=== PATIENT | male | born 1995 | race Caucasian/White ===

== ENCOUNTER 2017-03-28 06:59 | Emergency (ER) | payer OTHER ==
[~2017-03-28] VITALS: Ht 175.3 cm; Wt 117.9 kg
[2017-03-28 07:00] VITALS: BP 175/89
[2017-03-28] MEDS ORDERED: IBUP-1022 PO (07:27)
[2017-03-28] MEDS ORDERED: CYCL10TA PO (07:27)
[2017-03-28] MEDS ORDERED: CYCLOBENZAPRINE 10 MG TAB PO ONE (07:30)
[2017-03-28] MEDS ORDERED: IBUPROFEN 600 MG TAB PO ONE (07:30)
== END 2017-03-28 07:30 | disposition home or self-care (01) ==
LOC: M ED 06:59
DX: M62.830 Muscle spasm of back (principal); X50.0XXA Overexertion from strenuous movement or load, initial encounter; Y92.89 Other specified places as the place of occurrence of the external cause; Y93.89 Activity, other specified; Y99.0 Civilian activity done for income or pay

== ENCOUNTER 2019-02-14 19:42 | Emergency (ER) | payer OTHER, BC ==
[~2019-02-14] VITALS: Ht 177.8 cm; Wt 122.7 kg
[~2019-02-14 19:42] MED LIST: CYCL10TA PO; IBUP-1022 PO
[2019-02-14] MEDS ORDERED: IBUPROFEN 600 MG TAB PO ONE (21:15)
[2019-02-14 21:18] VITALS: BP 131/75
--- NOTE | 2019-02-15 01:37 | REP ---
Clinical: Right ankle pain . Technique: AP, lateral, bilateral oblique views. Findings: No acute fracture or dislocation. Skeletal structures and joint spaces are intact and normal. Ankle mortise appears stable. No subcutaneous emphysema or radiodense foreign body. Impression: Normal right ankle radiograph series. Electronically Signed by Jan Stoll MD 02/15/2019 01:28 A
--- NOTE | 2019-02-15 01:38 | REP ---
Clinical: Right knee pain Technique: AP, lateral, bilateral oblique and sunrise views. Findings: The osseous structures and joint spaces are intact and normal. There is no evidence for acute fracture or dislocation. No joint effusion is appreciated. Surrounding soft tissues are unremarkable. No subcutaneous emphysema or radiodense foreign body. Impression: Normal examination. No acute fracture or dislocation. Electronically Signed by Jan Stoll MD 02/15/2019 01:29 A
== END 2019-02-14 21:19 | disposition home or self-care (01) ==
LOC: M ED 19:42
DX: S83.411A Sprain of medial collateral ligament of right knee, initial encounter (principal); S93.411A Sprain of calcaneofibular ligament of right ankle, initial encounter; W00.9XXA Unspecified fall due to ice and snow, initial encounter; Y92.481 Parking lot as the place of occurrence of the external cause; Y93.9 Activity, unspecified; Y99.9 Unspecified external cause status

== ENCOUNTER 2019-07-15 20:58 | Emergency (ER) | payer BC, OTHER ==
[~2019-07-15] VITALS: Ht 175.3 cm; Wt 122.7 kg
[2019-07-15 20:58] VITALS: BP 148/78
[~2019-07-15 20:58] MED LIST changes: +CYCL-707 PO; -CYCL10TA PO
[2019-07-15] MEDS ORDERED: CYCL5TAB (21:04)
[2019-07-15] MEDS ORDERED: IBUP80TA (21:04)
[2019-07-15] MEDS ORDERED: KETOROLAC 60 MG/2 ML VIAL (J1885) IM ONE (21:30)
[2019-07-15] MEDS ORDERED: ACETAMINOPHEN 325 MG TAB PO ONE (21:30)
[2019-07-15] MEDS ORDERED: KETO10TAB PO (22:28)
[2019-07-15] MEDS ORDERED: KETOROLAC TROMETHAMINE 10 MG TAB PO ONE (22:30)
--- NOTE | 2019-07-16 08:59 | REP ---
REASON: Pain. AP and lateral views were obtained. There is no abnormality. Vertebral body height and alignment is within normal limits. The disc spaces are symmetric and well maintained. The pedicles are intact bilaterally. IMPRESSION: No abnormality. Electronically Signed by Mark Luna DO 07/16/2019 09:13 A
--- NOTE | 2019-07-16 09:01 | REP ---
THORACIC SPINE: REASON: Pain. COMPARISON: No priors. FINDINGS: Three views of the thoracic spine were obtained. The disc spaces are symmetric and relatively well maintained. There is no acute fracture or destructive osseous lesion. Electronically Signed by Mark Luna DO 07/16/2019 09:13 A
== END 2019-07-15 22:41 | disposition home or self-care (01) ==
LOC: M ED 20:58
DX: S39.012A Strain of muscle, fascia and tendon of lower back, initial encounter (principal); X50.0XXA Overexertion from strenuous movement or load, initial encounter; Y92.89 Other specified places as the place of occurrence of the external cause; Y93.89 Activity, other specified; Y99.0 Civilian activity done for income or pay; Z79.899 Other long term (current) drug therapy
CPT/HCPCS: 72070; 72100; 96372; 99283; J1885

== ENCOUNTER → 2020-02-26 | Outpatient (CLI) | payer SELFPAY ==
[~2020-02-26] MED LIST changes: +CYCL5TAB; +IBUP80TA; +KETO10TAB PO
== END ==
LOC: M LABSMTC 12:08
PROVIDERS: ATTEND Pediatrics
DX: Z20.828 Contact with and (suspected) exposure to other viral communicable diseases (principal)

== ENCOUNTER → 2020-04-11 | Outpatient (REF) | payer BC | LOC: M LAB REF 16:14 | PROVIDERS: ATTEND Physician Assistant | DX: J02.0 Streptococcal pharyngitis (principal) ==

== ENCOUNTER 2020-05-27 21:47 | Emergency (ER) | payer BC ==
[~2020-05-27] VITALS: Ht 177.8 cm; Wt 125.8 kg
--- OUTSIDE RECORDS SUMMARY | 2020-05-27 21:53 | CCD ---
Author Author [facility] Organization [facility] Address Unknown Phone Unavailable Care Team Providers Care Warehouse Operations Associate Name Role Phone Lopez, Karon CELL PLASTERER Unavailable Unavailable Lopez, Karon CELL PLASTERER Unavailable Unavailable Lopez, Karon CELL PLASTERER Unavailable Unavailable Lopez, Karon CELL PLASTERER Unavailable Unavailable Lopez, Karon CELL PLASTERER Unavailable Unavailable Lopez, Karon CELL PLASTERER Unavailable Unavailable Lopez, Karon CELL PLASTERER Unavailable Unavailable Lopez, Karon CELL PLASTERER Unavailable Unavailable Lopez, Karon CELL PLASTERER Unavailable Unavailable Lopez, Karon CELL PLASTERER Unavailable Unavailable Lopez, Karon CELL PLASTERER Unavailable Unavailable Re-disclosure Warning The records that you are about to access may contain information from federally-assisted alcohol or drug abuse programs. If such information is present, then the following federally mandated warning applies: This information has been disclosed to you from records protected by federal confidentiality rules (42 CFR part 2). The federal rules prohibit you from making any further disclosure of this information unless further disclosure is expressly permitted by the written consent of the person to whom it pertains or as otherwise permitted by 42 CFR part 2. A general authorization for the release of medical or other information is NOT sufficient for this purpose. The Federal rules restrict any use of the information to criminally investigate or prosecute any alcohol or drug abuse patient.The records that you are about to access may contain highly sensitive health information, the redisclosure of which is protected by Article 27-F of the [facility] Public Health law. If you continue you may have access to information: Regarding HIV / AIDS; Provided by facilities licensed or operated by the [facility] Office of Mental Health; or Provided by the [facility] Office for People With Developmental Disabilities. If such information is present, then the following [facility] mandated warning applies: This information has been disclosed to you from confidential records which are protected by state law. State law prohibits you from making any further disclosure of this information without the specific written consent of the person to whom it pertains, or as otherwise permitted by law. Any unauthorized further disclosure in violation of state law may result in a fine or long term sentence or both. A general authorization for the release of medical or other information is NOT sufficient authorization for further disc losure. Family History Family Member Name Family Member Gender Family Member Status Date o f Status Description Data Source(s) Unknown Unknown Problem [facility] ([facility], [facility]) mgm Encounters Encounter Providers Location Date Indications Data Source(s ) Outpatient 07/26/2019 05:32:00 AM EDT [facility] Outpatient Attender: Karon lebron 07/10/2019 10:45:00 AM EDT [facility] ([facility], [facility]) Medications Medication Brand Name Start Date Product Form Dose Route Admi nistrative Instructions Pharmacy Instructions Status Indications Reaction Description Data Source(s) Ibuprofen 800 MG Oral Tablet Ibuprofen 07/10/2019 12:00:00 AM EDT ORAL active [facility] ([facility], [facility]) Cyclobenzaprine hydrochloride 5 MG Oral Tablet Cyclobenzapri ne HCL 07/10/2019 12:00:00 AM EDT ORAL active M [facility]ENT ([facility], [facility]) Prednisone 20 MG Oral Tablet Prednisone 07/10/2019 12:00:00 AM EDT active [facility] ([facility], [facility]) No Active Medications 03/09/2019 12:00:00 AM EST completed [facility] ([facility], [facility]) Insurance Providers Payer name Policy type / Coverage type Policy ID Covered libertarian ID Covered libertarian's relationship to nichols Policy Nichols Plan Information [employer] [place] 306/806 [id number] SP [id number] SELF PAY ONLY [id number] SP [id number] EXCELLUS BCBS B [id number] S VYS [id number] PMA MANAGEMENT [facility] [id number] SP [id number] PMA MANAGEMENT [facility] O [id number] O [id number] [employer] [place] 306/806 [id number] SP [id number] PMA MANAGEMENT [facility] [id number] SP [id number] BCBS/Blue Card Commercial [id number] Self V [id number] BCBS/Blue Card Commercial [id number] Self V [id number] [facility] O UNAVAILABLE S UNAVAILABLE PHYSICIANS M[employer]UAL [id number] SP [id number] [facility] COMMUNITY PLAN [facility] [id number] SP [id number] [facility] Health Maintenance Organization (HMO) Self BCBS [place] PPO 302/307 [id number] MO2 [id number] Surgeries/Procedures Procedure Description Date Indications Data Source(s) Therapeutic, Prophylactic Or Diagnostic Injection Subq/Im 07/10/2019 12:00:00 AM EDT [facility] ([facility]) Results ID Date Data Source [id number] 05/23/2020 12:00:00 AM EST [facility] Name Value Range Interpretation Code Description Data Nicolasa rce(s) Supporting Document(s) SARS coronavirus 2 Ag NEGATIVE [facility] This lab was ordered by [facility] and reported by [facility]. ID Date Data Source [id number] 05/20/2020 12:00:00 AM EST [facility] Name Value Range Interpretation Code Description Data Nicolasa rce(s) Supporting Document(s) SARS-CoV2 Rapid Antigen Negative [facility] This lab was ordered by [facility] and reported by [facility]. ID Date Data Source [id number] 05/16/2020 12:00:00 AM EST [facility] Name Value Range Interpretation Code Description Data Nicolasa rce(s) Supporting Document(s) SARS coronavirus 2 Ag NEGATIVE [facility] This lab was ordered by [facility] and reported by [facility]. ID Date Data Source [id number] 05/13/2020 12:00:00 AM EST [facility] Name Value Range Interpretation Code Description Data Nicolasa rce(s) Supporting Document(s) SARS-CoV2 Rapid Antigen Negative [facility] This lab was ordered by [facility] and reported by [facility]. ID Date Data Source [id number] 05/06/2020 12:00:00 AM EST [facility] Name Value Range Interpretation Code Description Data Nicolasa rce(s) Supporting Document(s) SARS-CoV2 Rapid Antigen Negative [facility] This lab was ordered by [facility] [place] and reported by [facility]. ID Date Data Source [id number] 05/02/2020 12:00:00 AM EST [facility] Name Value Range Interpretation Code Description Data Nicolasa rce(s) Supporting Document(s) SARS coronavirus 2 Ag NEGATIVE [facility] and reported by [facility]. ID Date Data Source [id number] 04/29/2020 12:00:00 AM EST [facility] Name Value Range Interpretation Code Description Data Nicolasa rce(s) Supporting Document(s) SARS-CoV2 Rapid Antigen Negative [facility] This lab was ordered by [facility] and reported by [facility]. ID Date Data Source [id number] 04/25/2020 12:00:00 AM EST [facility] Name Value Range Interpretation Code Description Data Nicolasa rce(s) Supporting Document(s) SARS coronavirus 2 Ag Negative [facility] This lab was ordered by [facility] and reported by [facility]. ID Date Data Source [id number] 04/22/2020 12:00:00 AM EST [facility] Name Value Range Interpretation Code Description Data Nicolasa rce(s) Supporting Document(s) SARS-CoV2 Rapid Antigen Negative [facility] This lab was ordered by [facility] and reported by [facility]. ID Date Data Source [id number] 04/18/2020 12:00:00 AM EST [facility] Name Value Range Interpretation Code Description Data Nicolasa rce(s) Supporting Document(s) SARS-CoV2 Rapid Antigen Negative [facility] This lab was ordered by [facility] and reported by [facility]. ID Date Data Source [id number] 04/09/2020 12:00:00 AM EST [facility] Name Value Range Interpretation Code Description Data Nicolasa rce(s) Supporting Document(s) SARS-CoV2 Rapid Antigen Negative [facility] This lab was ordered by [facility] and reported by [facility]. ID Date Data Source [id number] 04/01/2020 12:00:00 AM EST [facility] Name Value Range Interpretation Code Description Data Nicolasa rce(s) Supporting Document(s) SARS-CoV2 Rapid Antigen [facility] This lab was ordered by [facility] and reported by [facility]. ID Date Data Source [id number] 03/25/2020 12:00:00 AM EST [facility] Name Value Range Interpretation Code Description Data Nicolasa rce(s) Supporting Document(s) SARS-CoV2 Rapid Antigen [facility] This lab was ordered by [facility] and reported by [facility]. ID Date Data Source [id number] 03/22/2020 12:00:00 AM EST [facility] Name Value Range Interpretation Code Description Data Nicolasa rce(s) Supporting Document(s) SARS-CoV2 Rapid Antigen [facility] This lab was ordered by [facility] and reported by [facility]. ID Date Data Source [id number] 03/21/2020 01:49:00 PM EST [facility] Name Value Range Interpretation Code Description Data Nicolasa rce(s) Supporting Document(s) SARS coronavirus 2 RNA [facility] This lab was ordered by [facility] and reported by [facility]. ID Date Data Source [id number] 03/19/2020 12:00:00 AM EST [facility] Name Value Range Interpretation Code Description Data Nicolasa rce(s) Supporting Document(s) SARS-CoV2 Rapid Antigen [facility] This lab was ordered by [facility] and reported by [facility]. ID Date Data Source [id number] 03/04/2020 01:00:00 PM EST [facility] Name Value Range Interpretation Code Description Data Nicolasa rce(s) Supporting Document(s) SARS coronavirus 2 RNA [facility] This lab was ordered by [facility] and reported by [facility]. ID Date Data Source [id number] 02/28/2020 12:00:00 AM EST [facility] Name Value Range Interpretation Code Description Data Nicolasa rce(s) Supporting Document(s) SARS-CoV2 Rapid Antigen [facility] This lab was ordered by [facility] and reported by [facility]. ID Date Data Source [id number] 02/26/2020 12:00:00 AM EST [facility] Name Value Range Interpretation Code Description Data Nicolasa rce(s) Supporting Document(s) 2019-nCoV RNA XXX BRIDGER+probe-Imp [facility] This lab was ordered by [facility] and reported by [employer] ID Date Data Source [id number] 02/19/2020 10:51:00 AM EST [facility] Name Value Range Interpretation Code Description Data Nicolasa rce(s) Supporting Document(s) SARS coronavirus 2 RNA [facility] This lab was ordered by [facility] and reported by [facility]. ID Date Data Source [id number] 02/15/2020 11:14:00 AM EST [facility] Name Value Range Interpretation Code Description Data Nicolasa rce(s) Supporting Document(s) SARS coronavirus 2 RNA [facility] This lab was ordered by [facility] and reported by [facility]. ID Date Data Source [id number] 02/08/2020 03:38:00 AM EST [facility] Name Value Range Interpretation Code Description Data Nicolasa rce(s) Supporting Document(s) SARS coronavirus 2 RNA [facility] This lab was ordered by [facility] and reported by [facility]. ID Date Data Source [id number] 01/29/2020 09:00:00 AM EDT [facility] Name Value Range Interpretation Code Description Data Nicolasa rce(s) Supporting Document(s) SARS coronavirus 2 RNA [facility] This lab was ordered by [facility] and reported by [facility]. ID Date Data Source [id number] 01/22/2020 01:00:00 PM EDT [facility] Name Value Range Interpretation Code Description Data Nicolasa rce(s) Supporting Document(s) SARS coronavirus 2 RNA [facility] This lab was ordered by [facility] and reported by [facility]. ID Date Data Source [id number] 01/15/2020 11:30:00 AM EDT [facility] Name Value Range Interpretation Code Description Data Nicolasa rce(s) Supporting Document(s) SARS coronavirus 2 RNA [facility] This lab was ordered by [facility] and reported by [facility]. ID Date Data Source [id number] 01/08/2020 12:00:00 PM EDT [facility] Name Value Range Interpretation Code Description Data Nicolasa rce(s) Supporting Document(s) SARS coronavirus 2 RNA [facility] This lab was ordered by [facility] and reported by [facility]. ID Date Data Source [id number] 01/04/2020 01:50:00 PM EDT [facility] Name Value Range Interpretation Code Description Data Nicolasa rce(s) Supporting Document(s) SARS coronavirus 2 RNA [facility] This lab was ordered by [facility] and reported by [facility]. ID Date Data Source [id number] 12/25/2019 12:00:00 PM EDT [facility] Name Value Range Interpretation Code Description Data Nicolasa rce(s) Supporting Document(s) SARS coronavirus 2 RNA [facility] This lab was ordered by [facility] and reported by [facility]. ID Date Data Source [id number] 12/18/2019 02:00:00 PM EDT [facility] Name Value Range Interpretation Code Description Data Nicolasa rce(s) Supporting Document(s) SARS coronavirus 2 RNA [facility] This lab was ordered by [facility] and reported by [facility]. ID Date Data Source [id number] 12/13/2019 12:00:00 PM EDT [facility] Name Value Range Interpretation Code Description Data Nicolasa rce(s) Supporting Document(s) SARS coronavirus 2 RNA [facility] This lab was ordered by [facility] and reported by [facility]. ID Date Data Source [id number] 12/07/2019 11:00:00 AM EDT [facility] Name Value Range Interpretation Code Description Data Nicolasa rce(s) Supporting Document(s) SARS coronavirus 2 RNA [facility] This lab was ordered by [facility] and reported by [facility]. ID Date Data Source [id number] 11/27/2019 01:16:00 PM EDT [facility] Name Value Range Interpretation Code Description Data Nicolasa rce(s) Supporting Document(s) SARS coronavirus 2 RNA [facility] This lab was ordered by [facility] and reported by [facility]. ID Date Data Source [id number] 10/16/2019 03:13:00 PM EDT [facility] Name Value Range Interpretation Code Description Data Nicolasa rce(s) Supporting Document(s) SARS coronavirus 2 RNA [facility] This lab was ordered by [facility] and reported by [facility]. ID Date Data Source [id number] 08/23/2019 02:24:00 PM EDT [facility] Name Value Range Interpretation Code Description Data Nicolasa rce(s) Supporting Document(s) SARS CORONAVIRUS 2 RNA [facility] This lab was ordered by [facility] and reported by [facility]. ID Date Data Source [id number] 08/15/2019 02:06:00 PM EDT [facility] Name Value Range Interpretation Code Description Data Nicolasa rce(s) Supporting Document(s) SARS CORONAVIRUS 2 RNA [facility] This lab was ordered by [facility] and reported by [facility]. Procedure Vital Signs ID Date Data Source UNK Name Value Range Interpretation Code Description Data Source(s) Body mass index (BMI) [Ratio] 39.9 kg/m2 39.9 k g/m2 [facility] ([facility]) Body height 69 [in_i] 69 [in_i] [facility] ([facility]) 5'9" Body weight 270.00 [lb_av] 270.00 [lb_av] [facility] ([facility]) Body temperature 98.8 [degF] 98.8 [degF] [facility] ([facility]) Oxygen saturation in Arterial blood by Pulse oximetry 97 % 97 % [facility] ([facility]) Respiratory rate 12 /min 12 /min [facility] ( [facility], [facility]) Heart rate 96 /min 96 /min [facility] ([facility], [facility]) Diastolic blood pressure 97 mm[Hg] 97 mm[Hg] [facility] ([facility], [facility]) Systolic blood pressure 128 mm[Hg] 128 mm[Hg] [facility])
--- NOTE | 2020-05-27 23:26 | REPVR ---
PROCEDURE INFORMATION: Exam: XR Right Foot Exam date and time: 05/27/20 (10:33pm) Age: 25 years old Clinical indication: Right foot pain. Injury. TECHNIQUE: Imaging protocol: XR Right foot Views: 3 or more views COMPARISON: Right ankle plain films of 02/14/19 FINDINGS: Bones/joints: Unremarkable. No acute fracture nor dislocation. Soft tissues: Unremarkable. IMPRESSION: No acute findings. Electronically signed by: Angelica Goodman On 05/27/2020 23:27:13 PM
--- OUTSIDE RECORDS SUMMARY | 2020-05-28 00:27 | CCD ---
Author Author [facility] Organization [facility] Address Unknown Phone Unavailable Care Team Providers Care Wirer Name Role Phone Lopez, Karon COACH Unavailable Unavailable Lopez, Karon COACH Unavailable Unavailable Lopez, Karon COACH Unavailable Unavailable Lopez, Karon COACH Unavailable Unavailable Lopez, Karon COACH Unavailable Unavailable Lopez, Karon COACH Unavailable Unavailable Lopez, Karon COACH Unavailable Unavailable Lopez, Karon COACH Unavailable Unavailable Lopez, Karon COACH Unavailable Unavailable Lopez, Karon COACH Unavailable Unavailable Lopez, Karon COACH Unavailable Unavailable Re-disclosure Warning The records that [...] is protected by Article 27-F of the [facility] Public Health law. If you continue you may have access to information: Regarding HIV / AIDS; Provided by facilities licensed or operated by the [facility] Office of Mental Health; or Provided by the [facility] Office for People With Developmental Disabilities. If such information is present, then the following [facility] mandated warning applies: This information has been [...] law may result in a fine or mcc sentence or both. A general authorization for the release of medical or other information is NOT sufficient authorization for further disc losure. Family History Family Member Name Family Member Gender Family Member Status Date o f Status Description Data Source(s) Unknown Unknown Problem [facility] ([facility]) mgm Encounters Encounter Providers Location Date Indications Data Source(s ) Outpatient 07/26/2019 05:32:00 AM EDT [facility] Outpatient Attender: Karon lebron 07/10/2019 10:45:00 AM EDT [facility] ([facility]) Medications Medication Brand Name Start Date Product Form Dose Route Admi nistrative Instructions Pharmacy Instructions Status Indications Reaction Description Data Source(s) Ibuprofen 800 MG Oral Tablet Ibuprofen 07/10/2019 12:00:00 AM EDT ORAL active [facility] ([facility]) Cyclobenzaprine hydrochloride 5 MG Oral Tablet Cyclobenzapri ne HCL 07/10/2019 12:00:00 AM EDT ORAL active M [facility]ENT ([facility]) Prednisone 20 MG Oral Tablet Prednisone 07/10/2019 12:00:00 AM EDT active [facility] ([facility] [place], [facility]) No Active Medications 03/09/2019 12:00:00 AM EST completed [facility] ([facility] Insurance Providers Payer name Policy type / Coverage type Policy ID Covered democrat ID Covered democrat's relationship to nichols Policy Nichols Plan Information [employer] [place] 306/806 [id number] SP [id number] SELF PAY ONLY [id number] SP [id number] EXCELLUS BCBS B [id number] S VYS [id number] PMA MANAGEMENT [facility] [id number] SP [id number] PMA MANAGEMENT [facility] O [id number] O [id number] [employer] [place] 306/806 [id number] SP [id number] PMA MANAGEMENT [facility] [id number] SP [id number] BCBS/Blue Card Commercial [id number] Self V [id number] BCBS/Blue Card Commercial [id number] Self V [id number] [facility] O UNAVAILABLE S UNAVAILABLE PHYSICIANS MUTUAL [id number] SP [id number] [facility] [id number] SP [id number] [facility] Health Maintenance Organization (HMO) Self BCBS [place] PPO 302/307 [id number] MO2 [id number] Surgeries/Procedures Procedure Description Date Indications Data Source(s) Therapeutic, Prophylactic Or Diagnostic Injection Subq/Im 07/10/2019 12:00:00 AM EDT [facility] ([facility]) Results ID Date Data Source [id number] 05/23/2020 12:00:00 AM EST [facility] Name Value Range Interpretation Code Description Data Nicolasa rce(s) Supporting Document(s) SARS coronavirus 2 Ag NEGATIVE [facility] This lab was ordered by JANEL FREITAS and reported by [facility]. ID Date Data Source [id number] 05/20/2020 12:00:00 AM EST [facility] Name Value Range Interpretation Code Description Data Nicolasa rce(s) Supporting Document(s) SARS-CoV2 Rapid Antigen Negative [facility] This lab was ordered by Janel mauricio [place] and reported by [facility] Kevin [place]. ID Date Data Source [id number] 05/16/2020 12:00:00 AM EST [facility] Name Value Range Interpretation Code Description Data Nicolasa rce(s) Supporting Document(s) SARS coronavirus 2 Ag NEGATIVE [facility] This lab was ordered by [facility] and reported by [facility]. ID Date Data Source [id number] 05/13/2020 12:00:00 AM EST [facility] Name Value Range Interpretation Code Description Data Nicolasa rce(s) Supporting Document(s) SARS-CoV2 Rapid Antigen Negative [facility] This lab was ordered by [facility] and reported by [facility]. ID Date Data Source [id number] 05/06/2020 12:00:00 AM EST [facility] Name Value Range Interpretation Code Description Data Nicolasa rce(s) Supporting Document(s) SARS-CoV2 Rapid Antigen Negative [facility] This lab was ordered by [facility] and reported by [facility]. ID Date Data Source [id number] 05/02/2020 12:00:00 AM EST [facility] Name Value Range Interpretation Code Description Data Nicolasa rce(s) Supporting Document(s) SARS coronavirus 2 Ag NEGATIVE [facility] This lab was ordered by [facility] and reported by [facility]. ID Date Data Source [id number] 04/29/2020 12:00:00 AM EST [facility] Name Value Range Interpretation Code Description Data Nicolasa rce(s) Supporting Document(s) SARS-CoV2 Rapid Antigen Negative [facility] This lab was ordered by [facility] and reported by [facility]. ID Date Data Source [id number] 04/25/2020 12:00:00 AM EST [facility] Name Value Range Interpretation Code Description Data Nicolasa rce(s) Supporting Document(s) SARS coronavirus 2 Ag Negative [facility] This lab was ordered by [facility] and reported by [facility]. ID Date Data Source [id number] 04/22/2020 12:00:00 AM EST [facility] Name Value Range Interpretation Code Description Data Nicolasa rce(s) Supporting Document(s) SARS-CoV2 Rapid Antigen Negative [facility] This lab was ordered by [facility] and reported by [facility]. ID Date Data Source [id number] 04/18/2020 12:00:00 AM EST [facility] Name Value Range Interpretation Code Description Data Nicolsaa rce(s) Supporting Document(s) SARS-CoV2 Rapid Antigen Negative [facility] This lab was ordered by [facility] and reported by [facility]. ID Date Data Source [id number] 04/09/2020 12:00:00 AM EST [facility] Name Value Range Interpretation Code Description Data Nicolasa rce(s) Supporting Document(s) SARS-CoV2 Rapid Antigen Negative [facility] This lab was ordered by [facility] and reported by [facility]. ID Date Data Source [id number] 04/01/2020 12:00:00 AM EST [facility] Name Value Range Interpretation Code Description Data Nicolasa rce(s) Supporting Document(s) SARS-CoV2 Rapid Antigen [facility] This lab was ordered by [facility] and reported by [facility]. ID Date Data Source [id number] 03/25/2020 12:00:00 AM EST [facility] Name Value Range Interpretation Code Description Data Nicolasa rce(s) Supporting Document(s) SARS-CoV2 Rapid Antigen [facility] This lab was ordered by [facility] and reported by [facility]. ID Date Data Source [id number] 03/22/2020 12:00:00 AM EST [facility] Name Value Range Interpretation Code Description Data Nicolasa rce(s) Supporting Document(s) SARS-CoV2 Rapid Antigen [facility] This lab was ordered by [facility] and reported by [facility]. ID Date Data Source [id number] 03/21/2020 01:49:00 PM EST [facility] Name Value Range Interpretation Code Description Data Nicolasa rce(s) Supporting Document(s) SARS coronavirus 2 RNA [facility] This lab was ordered by [facility] and reported by [facility]. ID Date Data Source [id number] 03/19/2020 12:00:00 AM EST [facility] Name Value Range Interpretation Code Description Data Nicolasa rce(s) Supporting Document(s) SARS-CoV2 Rapid Antigen [facility] This lab was ordered by [facility] and reported by [facility]. ID Date Data Source [id number] 03/04/2020 01:00:00 PM EST [facility] Name Value Range Interpretation Code Description Data Nicolasa rce(s) Supporting Document(s) SARS coronavirus 2 RNA [facility] This lab was ordered by [facility] and reported by [facility]. ID Date Data Source [id number] 02/28/2020 12:00:00 AM EST [facility] Name Value Range Interpretation Code Description Data Nicolasa rce(s) Supporting Document(s) SARS-CoV2 Rapid Antigen [facility] This lab was ordered by [facility] and reported by [facility]. ID Date Data Source [id number] 02/26/2020 12:00:00 AM EST [facility] Name Value Range Interpretation Code Description Data Nicolasa rce(s) Supporting Document(s) 2019-nCoV RNA XXX BRIDGER+probe-Imp [facility] This lab was ordered by [facility] and reported by [facility]. ID Date Data Source [id number] 02/19/2020 10:51:00 AM EST [facility] Name Value Range Interpretation Code Description Data Nicolasa rce(s) Supporting Document(s) SARS coronavirus 2 RNA [facility] This lab was ordered by [facility] and reported by [facility]. ID Date Data Source [id number] 02/15/2020 11:14:00 AM EST [facility] Name Value Range Interpretation Code Description Data Nicolasa rce(s) Supporting Document(s) SARS coronavirus 2 RNA [facility] This lab was ordered by [facility] and reported by [facility]. ID Date Data Source [id number] 02/08/2020 03:38:00 AM EST [facility] Name Value Range Interpretation Code Description Data Nicolasa rce(s) Supporting Document(s) SARS coronavirus 2 RNA [facility] This lab was ordered by [facility] and reported by [facility]. ID Date Data Source [id number] 01/29/2020 09:00:00 AM EDT [facility] Name Value Range Interpretation Code Description Data Nicolasa rce(s) Supporting Document(s) SARS coronavirus 2 RNA [facility] This lab was ordered by [facility] and reported by [facility]. ID Date Data Source [id number] 01/22/2020 01:00:00 PM EDT [facility] Name Value Range Interpretation Code Description Data Nicolasa rce(s) Supporting Document(s) SARS coronavirus 2 RNA [facility] This lab was ordered by [facility] and reported by [facility]. ID Date Data Source [id number] 01/15/2020 11:30:00 AM EDT [facility] Name Value Range Interpretation Code Description Data Nicolasa rce(s) Supporting Document(s) SARS coronavirus 2 RNA [facility] This lab was ordered by [facility] and reported by [facility]. ID Date Data Source [id number] 01/08/2020 12:00:00 PM EDT [facility] Name Value Range Interpretation Code Description Data Nicolasa rce(s) Supporting Document(s) SARS coronavirus 2 RNA [facility] This lab was ordered by [facility] and reported by [facility]. ID Date Data Source [id number] 01/04/2020 01:50:00 PM EDT [facility] Name Value Range Interpretation Code Description Data Nicolasa rce(s) Supporting Document(s) SARS coronavirus 2 RNA [facility] This lab was ordered by [facility] and reported by [facility]. ID Date Data Source [id number] 12/25/2019 12:00:00 PM EDT [facility] Name Value Range Interpretation Code Description Data Nicolasa rce(s) Supporting Document(s) SARS coronavirus 2 RNA [facility] This lab was ordered by [facility] and reported by [facility]. ID Date Data Source [id number] 12/18/2019 02:00:00 PM EDT [facility] Name Value Range Interpretation Code Description Data Nicolasa rce(s) Supporting Document(s) SARS coronavirus 2 RNA [facility] This lab was ordered by [facility] and reported by [facility]. ID Date Data Source [id number] 12/13/2019 12:00:00 PM EDT [facility] Name Value Range Interpretation Code Description Data Nicolasa rce(s) Supporting Document(s) SARS coronavirus 2 RNA [facility] This lab was ordered by [facility] and reported by [facility]. ID Date Data Source [id number] 12/07/2019 11:00:00 AM EDT [facility] Name Value Range Interpretation Code Description Data Nicolasa rce(s) Supporting Document(s) SARS coronavirus 2 RNA [facility] This lab was ordered by [facility] and reported by [facility]. ID Date Data Source [id number] 11/27/2019 01:16:00 PM EDT [facility] Name Value Range Interpretation Code Description Data Nicolasa rce(s) Supporting Document(s) SARS coronavirus 2 RNA [facility] This lab was ordered by [facility] and reported by [facility]. ID Date Data Source [id number] 10/16/2019 03:13:00 PM EDT [facility] Name Value Range Interpretation Code Description Data Nicolasa rce(s) Supporting Document(s) SARS coronavirus 2 RNA [facility] This lab was ordered by [facility] and reported by [facility]. ID Date Data Source [id number] 08/23/2019 02:24:00 PM EDT [facility] Name Value Range Interpretation Code Description Data Nicolasa rce(s) Supporting Document(s) SARS CORONAVIRUS 2 RNA [facility] This lab was ordered by [facility] and reported by [facility]. ID Date Data Source [id number] 08/15/2019 02:06:00 PM EDT [facility] Name Value Range Interpretation Code Description Data Nicolasa rce(s) Supporting Document(s) SARS CORONAVIRUS 2 RNA [facility] This lab was ordered by [facility] and reported by [facility]. Procedure Vital Signs ID Date Data Source UNK Name Value Range Interpretation Code Description Data Source(s) Body mass index (BMI) [Ratio] 39.9 kg/m2 39.9 k g/m2 [facility] Body height 69 [in_i] 69 [in_i] [facility] ([facility]) 5'9" Body weight 270.00 [lb_av] 270.00 [lb_av] [facility] T ([facility]) Body temperature 98.8 [degF] 98.8 [degF] [facility] ([facility]) Oxygen saturation in Arterial blood by Pulse oximetry 97 % 97 % [facility]) Respiratory rate 12 /min 12 /min [facility] ( [facility]) Heart rate 96 /min 96 /min [facility]) Diastolic blood pressure 97 mm[Hg] 97 mm[Hg] [facility]) Systolic blood pressure 128 mm[Hg] 128 mm[Hg] [facility])
[2020-05-28 00:29] VITALS: BP 146/88
== END 2020-05-28 00:31 | disposition home or self-care (01) ==
LOC: M ED 21:47
DX: S99.921A Unspecified injury of right foot, initial encounter (principal); X58.XXXA Exposure to other specified factors, initial encounter; Y92.410 Unspecified street and highway as the place of occurrence of the external cause; Y93.89 Activity, other specified; Y99.9 Unspecified external cause status

== ENCOUNTER → 2020-06-03 | Outpatient (CLI) | payer BC ==
--- NOTE | 2020-06-03 11:50 | REP ---
INDICATION: RT FOOT CONTUSION ? OCCULT FX. COMPARISON: None. TECHNIQUE: Axial noncontrast images of the right foot with coronal and sagittal reformations. FINDINGS: The osseous structures, joint spaces, and surrounding soft tissues appear essentially normal and there is no evidence for acute or healed injury. IMPRESSION: No obvious acute fracture or dislocation appreciated. If the patient remains symptomatic consider MRI for further investigation to exclude the possibility of subtle injury. <Electronically signed by Jan Stoll > 06/03/20 1146
== END ==
LOC: M RAD 11:13
PROVIDERS: ATTEND Physician Assistant Surgical
DX: S90.31XA Contusion of right foot, initial encounter (principal); X58.XXXA Exposure to other specified factors, initial encounter; Y92.9 Unspecified place or not applicable; Y99.9 Unspecified external cause status

== ENCOUNTER 2021-07-24 08:22 | Emergency (ER) | payer BC ==
[~2021-07-24] VITALS: Ht 177.8 cm; Wt 118.2 kg
[2021-07-24 08:23] VITALS: BP 129/75
[2021-07-24 08:55] VITALS: O2SAT 95
== END 2021-07-24 09:49 | disposition home or self-care (01) ==
LOC: M ED 08:22
DX: J00 Acute nasopharyngitis [common cold] (principal); B34.9 Viral infection, unspecified; Z11.52 Encounter for screening for COVID-19

== ENCOUNTER 2022-08-17 16:44 | Emergency (ER) | payer BC ==
[~2022-08-17] VITALS: Ht 175.3 cm; Wt 115.1 kg
[2022-08-17] MEDS ORDERED: KETOROLAC 30 MG/ML 1ML VIAL IM ONE (20:05)
[2022-08-17] MEDS ORDERED: CYCL-707 PO (20:07)
[2022-08-17 20:31] VITALS: BP 136/83
== END 2022-08-17 20:32 | disposition home or self-care (01) ==
LOC: M ED 16:44
DX: S46.011A Strain of muscle(s) and tendon(s) of the rotator cuff of right shoulder, initial encounter (principal); X50.0XXA Overexertion from strenuous movement or load, initial encounter; Y99.0 Civilian activity done for income or pay
CPT/HCPCS: 96372; 99283; J1885

== ENCOUNTER → 2022-08-20 | Outpatient (CLI) | payer BC | LOC: M SOG 09:31 | PROVIDERS: ATTEND Physician Assistant | DX: M25.511 Pain in right shoulder (principal); M75.31 Calcific tendinitis of right shoulder ==

== ENCOUNTER 2023-10-17 16:08 | Emergency (ER) | payer OTHER, SELFPAY ==
[~2023-10-17] VITALS: Ht 175.3 cm; Wt 118.2 kg
[2023-10-17 22:20] VITALS: BP 134/80; TEMP 98; O2SAT 99
== END 2023-10-18 01:40 | disposition left against medical advice (07) ==
LOC: M ED 16:08
DX: Z53.21 Procedure and treatment not carried out due to patient leaving prior to being seen by health care provider (principal)